=== PATIENT | female | born 1970 | race African-American/Black ===

== ENCOUNTER 2016-12-24 07:52 | Emergency (ER) | payer BC ==
[2016-12-24] MEDS ORDERED: Albuterol 2.5 MG/3 ML NEB.SOL* (0.083%) INH ONE (08:09)
[2016-12-24] MEDS ORDERED: Acetaminophen TAB* 325 MG PO ONE (08:09)
[2016-12-24] MEDS ORDERED: Albuterol/Ipratropium NEB.SOL* Albuterol 2.5 MG/Ipratropium 0.5 MG 3 ML INH ONE (08:09)
[2016-12-24] MEDS ORDERED: predniSONE TAB* 20 MG PO ONE (08:09)
[2016-12-24 09:32] VITALS: BP 124/79
[2016-12-24] MEDS ORDERED: Albuterol HFA INHALER* 8 gm MDI INH ONE (09:34)
--- NOTE | 2016-12-24 18:34 | ED ---
Hai Carmona Angela, scribusman for Isabelle Joseph MD on 12/24/16 at 0808 . Complex/Multi-Sys Presentation - HPI Summary HPI Summary: This pt is a 46 y/o [facility] [facility]. Pt states her cough is productive and has had sometimes bloody sputum. She additionally c/o rhinorrhea, chest congestion, chest pain secondary to cough. Pt denies fever, chills. PMHx includes asthma, for which she is currently using an inhaler. Pt states she had high blood pressure last time she took prednisone. LMP: 3 weeks ago. - History Of Current Complaint Chief Complaint: EDGeneral Time Seen by Provider: 12/24/16 07:54 Hx Obtained From: Patient Onset/Duration: Lasting Days, Still Present Timing: Constant, Days Location: Pain At: - head Associated Signs And Symptoms: Positive: Cough, Chest Pain - secondary to pain, Other - rhinorrhea,chest congestion. Negative: Fever - Allergies/Home Medications Allergies/Adverse Reactions: Allergies Allergy/AdvReac Type Severity Reaction Status Date / Time No Known Allergies Allergy Verified 12/10/15 08:11 PMH/Surg Hx/FS Hx/Imm Hx Endocrine/Hematology History: Reports: Other Endocrine/Hematological Disorders Respiratory History: Reports: Hx Asthma Sensory History: Reports: Hx Contacts or Glasses Opthamlomology History: Reports: Hx Contacts or Glasses - Cancer History Hx Chemotherapy: No Hx Radiation Therapy: No - Surgical History Surgery Procedure, Year, and Place: "ABDOMINAL SURGERY A TODDLER" to remove a diaper pin after swallowing Infectious Disease History: No Infectious Disease History: Denies: Traveled Outside the [place] in Last 30 Days - Family History Known Family History: Positive: Hypertension, Diabetes - Social History Alcohol Use: Rare Substance Use Type: Reports: None Hx Tobacco Use: No Smoking Status (MU): Never Smoked Tobacco Review of Systems Negative: Fever, Chills Positive: Other - rhinorrhea Positive: Chest Pain - secondary to pain, chest congestion Positive: Cough All Other Systems Reviewed And Are Negative: Yes Physical Exam Triage Information Reviewed: Yes Vital Signs On Initial Exam: Initial Vitals Temp Pulse Resp BP Pulse Ox 97.7 F 102 22 155/112 99 12/24/16 07:54 12/24/16 07:54 12/24/16 07:54 12/24/16 07:54 12/24/16 07:54 Vital Signs Reviewed: Yes Skin: Positive: Warm, Skin Color Reflects Adequate Perfusion, Dry Head/Face: Positive: Normal Head/Face Inspection Eyes: Positive: Normal ENT: Positive: Normal ENT inspection Respiratory/Lung Sounds: Positive: Other - minimally decreased breath sounds Cardiovascular: Positive: Normal, RRR Musculoskeletal: Positive: Normal, Strength/ROM Intact Neurological: Positive: Normal, Sensory/Motor Intact, Alert, Oriented to Person Place, Time Psychiatric: Positive: Normal Diagnostics - Vital Signs Vital Signs Temp Pulse Resp BP Pulse Ox 12/24/16 07:54 97.7 F 102 22 155/112 99 - Laboratory Lab Statement: Any lab studies that have been ordered have been reviewed, and results considered in the medical decision making process. Re-Evaluation - Re-Evaluation First Eval Re-Evaluation Time: 09:33 Comment: Pt is feeling better. On re-examination, pt has lungs clear to auscultation with no wheezes. Complex Multi-Symp Course/Dx Assessment/Plan: Pt is a 46 y/o female who presents with cough x2 days, chest pain and congestion secondary to cough. In the ED course, pt was given duoneb, ventolin, tylenol, and prednisone. On re-evaluation, pt is feeling better. Pt will be discharged home with prednisone. - Diagnoses Provider Diagnoses: Asthma Discharge - Discharge Plan Condition: Stable Disposition: HOME Prescriptions: Prednisone 40 mg PO DAILY #10 tab MDD 2 Patient Education Materials: Asthma (ED) Forms: *Work Release Referrals: Antonio Pack MD [Primary Care Provider] - 2 Days The documentation as recorded by the Hai luna Angela accurately reflects the service I personally performed and the decisions made by me, Isabelle Joseph MD.
== END 2016-12-24 09:48 | disposition home or self-care (01) ==
LOC: ED 07:52
DX: J45.909 Unspecified asthma, uncomplicated (principal); R05 Cough; R07.9 Chest pain, unspecified
CPT/HCPCS: 94640; 99282; A9270-GY; J7512

== ENCOUNTER 2017-06-11 07:02 | Emergency (ER) | payer BC ==
--- NOTE | 2017-06-11 07:47 | RAD ---
INDICATION: Bilateral knee pain for months COMPARISON: None TECHNIQUE: Standing weightbearing AP, lateral, tunnel, and sunrise views were obtained. FINDINGS: There is mild to moderate patellofemoral osteoarthritis with mild lateral subluxation of the patellas. There is minor spurring tibial spines. There are no additional significant osteoarthritic changes.. IMPRESSION: MINOR OSTEOARTHRITIC CHANGE PREDOMINANTLY ABOUT THE PATELLOFEMORAL JOINT SPACE COMPARTMENTS
--- NOTE | 2017-06-11 08:11 | ED ---
Lower Extremity - HPI Summary HPI Summary: Patient here with bilateral knee pain times a few months. She reports pain is worse when she tries to stand from sitting and if she stands for prolonged periods of time. She has swelling times. Has been trying naproxen with minimal relief. 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 Otherwise no previous injury to knees. She also admits to a history of low back pain. Documents here indicates she has a weak core and was evaluated by physical therapy - does not appear that she went to many sessions -not sure she gained much benefit as she has poor compliance with sessions. She also reports some paresthesias into the right lower leg which been evaluated by her PCP with nerve conduction study - per patient, this has been normal. Denies swelling below the knees and no issues with circulation. She was supposed to get an x-ray through her PCP however has not done this yet. - History of Current Complaint Chief Complaint: EDExtremityLower Stated Complaint: KNEE PAIN Time Seen by Provider: 06/11/17 07:13 Hx Obtained From: Patient Pain Intensity: 8 - Allergies/Home Medications Allergies/Adverse Reactions: Allergies Allergy/AdvReac Type Severity Reaction Status Date / Time No Known Allergies Allergy Verified 06/11/17 07:07 PMH/Surg Hx/FS Hx/Imm Hx Previously Healthy: Yes Endocrine/Hematology History: Reports: Other Endocrine/Hematological Disorders Denies: Hx Diabetes Cardiovascular History: Reports: Hx Hypertension - pt reports this was gestational - no meds now Respiratory History: Reports: Hx Asthma Musculoskeletal History: Reports: Hx Back Problems - lumbar pain w/ weak core, Other Musculoskeletal History - B/L knee pain Denies: Hx Arthritis, Hx Rheumatoid Arthritis, Hx Bursitis, Hx Fibromyalgia, Hx Gout, Hx Orthopedic Injury Sensory History: Reports: Hx Contacts or Glasses Opthamlomology History: Reports: Hx Contacts or Glasses - Cancer History Hx Chemotherapy: No Hx Radiation Therapy: No - Surgical History Surgery Procedure, Year, and Place: "ABDOMINAL SURGERY A TODDLER" to remove a diaper pin after swallowing Infectious Disease History: No Infectious Disease History: Denies: Traveled Outside the [place] in Last 30 Days - Family History Known Family History: Positive: Hypertension, Diabetes, Other - both parents are blind; father w/ glaucoma - Social History Occupation: Employed Full-time - hospital aid Lives: With Family Alcohol Use: Rare Hx Substance Use: No Substance Use Type: Reports: None Hx Tobacco Use: No Smoking Status (MU): Never Smoked Tobacco Review of Systems Constitutional: Negative Negative: Fever, Chills Gastrointestinal: Negative Positive: no symptoms reported Positive: Arthralgia, Edema. Negative: Decreased ROM Skin: Negative Positive: Paresthesia Psychological: Normal All Other Systems Reviewed And Are Negative: Yes Physical Exam Triage Information Reviewed: Yes Vital Signs On Initial Exam: Initial Vitals Temp Pulse Resp BP Pulse Ox 98.4 F 94 14 148/93 100 06/11/17 07:07 06/11/17 07:07 06/11/17 07:07 06/11/17 07:07 06/11/17 07:07 Vital Signs Reviewed: Yes Appearance: Positive: Well-Appearing, No Pain Distress - at rest, Obese Skin: Positive: Warm, Skin Color Reflects Adequate Perfusion - No erythema, no ecchymosis, no warmth to palpation, no lesions appreciated over bilateral knees , Dry Head/Face: Positive: Normal Head/Face Inspection Eyes: Positive: EOMI ENT: Positive: Hearing grossly normal Respiratory/Lung Sounds: Positive: Breath Sounds Present Cardiovascular: Positive: Pulses are Symmetrical in both Upper and Lower Extremities. Negative: Leg Edema Left, Leg Edema Right Musculoskeletal: Positive: Normal, Strength/ROM Intact - Knees are nontender to palpation bilaterally, no nessa edema Neurological: Positive: Normal, Sensory/Motor Intact, Alert, Oriented to Person Place, Time, CN Intact II-III Psychiatric: Positive: Normal - She reports Diagnostics - Vital Signs Vital Signs Temp Pulse Resp BP Pulse Ox 06/11/17 07:07 98.4 F 94 14 148/93 100 - Laboratory Lab Statement: Any lab studies that have been ordered have been reviewed, and results considered in the medical decision making process. Lower Extremity Course/Dx - Course Course Of Treatment: Patient appears to have bilateral arthritis specifically about the patellofemoral joint space suspect this is from her history of kneeling at work. She's been taking naproxen with minimal relief. Will trial short course of prednisone and have her f/u w/ PCP. We also discussed applying heat and returning to physical therapy to address her low back issues which can contribute to exacerbation of knee pain. She may be a good candidate for Mobic at some point however will let her discuss this with her PCP. She also may have arthritis in other joints as she is young and complains of not only back pain but also occasional left shoulder pain. Autoimmune inflammatory workup may be performed by PCP as needed. She agrees with plan. - Diagnoses Provider Diagnoses: Arthritis of both knees Discharge - Sign-Out/Discharge Documenting (check all that apply): Discharge/Admit/Transfer - Discharge Plan Condition: Stable Disposition: HOME Prescriptions: predniSONE [Prednisone] 20 mg PO DAILY WITH MEAL #5 tablet Patient Education Materials: Arthritis (ED) Referrals: Antonio Pack MD [Primary Care Provider] - Additional Instructions: You appear to have arthritis in both of your knees, especially the kneecaps. When you wake in the morning, he may apply heat and perform gentle stretches to reduce stiffness and pain. He may continue naproxen as directed by her PCP - always take with food. Additionally you have been prescribed a short course of low-dose steroid to reduce her pain. Please follow up with her PCP for further instruction and treatment as needed. note: It is also recommended you follow-up with physical therapy to help your back pain. Your evaluation notes indicate you have a weak core which can exacerbate knee pain. By attending physical therapy and strengthening her core , he may reduce pain in both her back and her knees. Call physical therapy her PCP to reschedule this appointment. - Billing Disposition and Condition Condition: STABLE Disposition: HOME
[2017-06-11 08:41] VITALS: BP 112/64
== END 2017-06-11 08:40 | disposition home or self-care (01) ==
LOC: ED 07:02
DX: M17.0 Bilateral primary osteoarthritis of knee (principal); M25.562 Pain in left knee; M25.561 Pain in right knee; J45.909 Unspecified asthma, uncomplicated
CPT/HCPCS: 99281

== ENCOUNTER 2019-04-03 11:15 | Emergency (ER) | payer BC, OTHER ==
[2019-04-03 11:43] VITALS: BP 157/82
--- NOTE | 2019-04-03 11:59 | UC ---
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 Patient states the pain felt worse this morning after she woke up. States it is very stiff. Notes "lightning sharp pains" intermittently. Pain better with standing and worse with sitting and bending over. Denies radiating pain. Denies numbness and tingling. Denies bowel/bladder incontinence. Notes back issues in the past and states she had a "normal MRI a couple weeks ago." States she has an appt to follow up with Dr. Larry on Saturday. - History of Current Complaint Chief Complaint: UCBackPain Stated Complaint: BACK INJURY Hx Obtained From: Patient Hx Last Menstrual Period: 03/03/19 Pain Intensity: 9 Pain Scale Used: 0-10 Numeric - Allergies/Home Medications Allergies/Adverse Reactions: Allergies Allergy/AdvReac Type Severity Reaction Status Date / Time No Known Allergies Allergy Verified 04/03/19 11:43 Home Medications: Home Medications Cyclobenzaprine TAB* [Flexeril 10 MG TAB*] 1 tab PO TID 04/03/19 [History Confirmed 04/03/19] Cyclobenzaprine TAB* [Flexeril 10 MG TAB*] 10 mg PO BID PRN #10 tab 04/03/19 [Rx ] Lisinopril TAB* [Prinivil TAB 5 MG*] 10 mg PO DAILY 04/03/19 [History Confirmed 04/03/19] PMH/Surg Hx/FS Hx/Imm Hx - Surgical History Surgical History: Yes Surgery Procedure, Year, and Place: "ABDOMINAL SURGERY A TODDLER" to remove a diaper pin after swallowing - Family History Known Family History: Positive: Hypertension, Diabetes, Other - both parents are blind; father w/ glaucoma - Social History Alcohol Use: Rare Substance Use Type: None Smoking Status (MU): Never Smoked Tobacco - Immunization History Most Recent Influenza Vaccination: 2014 Most Recent Tetanus Shot: up to date Most Recent Pneumonia Vaccination: 3 years ago Review of Systems All Other Systems Reviewed And Are Negative: Yes Constitutional: Positive: Negative Skin: Positive: Negative Respiratory: Positive: Negative Cardiovascular: Positive: Negative Neurovascular: Positive: Negative Musculoskeletal: Positive: Arthralgia - left lower back pain, Decreased ROM - bending over. Negative: Edema Neurological/Mental Status: Positive: Negative. Negative: Paresthesia, Numbness Physical Exam - Summary Physical Exam Summary: Vital Signs Reviewed: Yes A+Ox3, no distress Eyes: Conjunctiva Clear ENT: Hearing grossly normal neck: supple Respiratory: Positive: No respiratory distress, No accessory muscle use Cardiovascular: skin color reflect adequate perfusion Musculoskeletal Exam: LÓPEZ x 4 without difficulty, +TTP and spasm noted of left lower back, decreased ROM flexion at hips, sensation grossly intact Neurological: Positive: Alert, ambulatory without difficulty Psychological: Positive: age appropriate behavior Skin: Positive: no rash, no ecchymosis Vital Signs: Initial Vital Signs Temp 99.2 F 04/03/19 11:41 Pulse 80 04/03/19 11:41 Resp 16 04/03/19 11:41 BP 157/82 04/03/19 11:41 Pulse Ox 100 04/03/19 11:41 Back Pain Course/Dx - Course Course Of Treatment: Discussed muscle spasm with patient and prescribed flexeril. She looks well and instructed not to drive or operate heavy machinery while taking. Instructed to continue with ibuprofen, stretching, and heat and to follow up with Dr. Larry if needed. Patient voiced understanding and agreed with treatment plan. - Differential Dx/Diagnosis Provider Diagnosis: Left low back pain, Back muscle spasm Discharge ED - Sign-Out/Discharge Documenting (check all that apply): Patient Departure All imaging exams completed and their final reports reviewed: No Studies - Discharge Plan Condition: Stable Disposition: HOME Prescriptions: Cyclobenzaprine TAB* [Flexeril 10 MG TAB*] 10 mg PO BID PRN #10 tab PRN Reason: Spasms - Back Patient Education Materials: Muscle Spasm (ED), Lower Back Exercises (ED) Forms: *Work Release Referrals: Sree Larry MD [Medical Doctor] - Additional Instructions: Take Flexeril as prescribed for muscle spasms. Rest, heat, and take ibuprofen as directed to help alleviate pain symptoms. Refrain from strenuous physical activity until pain has resolved. Follow up with Dr. Larry listed below if symptoms persist. - Billing Disposition and Condition Condition: STABLE Disposition: Home - Attestation Statements Provider Attestation: This patient was not seen by me. I was available for consult. Chart reviewed. SAVANNAH
== END 2019-04-03 12:08 | disposition home or self-care (01) ==
LOC: UCEAST 11:15
DX: M54.5 Low back pain (principal); M62.830 Muscle spasm of back; X50.1XXA Overexertion from prolonged static or awkward postures, initial encounter; Y92.9 Unspecified place or not applicable; Y99.0 Civilian activity done for income or pay
CPT/HCPCS: 99212; G0463